=== PATIENT | male | born 1955 | race Caucasian/White ===

== ENCOUNTER 2022-05-16 15:37 | Outpatient (CLI) | payer OTHER, SELFPAY ==
[2022-05-16 21:55] LABS: Cholesterol* 166 mg/dL (90-199)
[2022-05-16 21:56] LABS: HDL Cholesterol* 42 mg/dL (>=40); LDL Cholesterol Calculated 86 mg/dL (<100); Triglycerides* 190 mg/dL (40-149)
[2022-05-16 22:24] LABS: PSA Screen* 3.54 ng/mL (0.10-4.00)
== END 2022-05-16 15:38 | disposition home or self-care (01) ==
LOC: LKVREF 15:38
PROVIDERS: PCP Family Medicine; Visit Provider Family Medicine
DX: Z00.00 Encounter for general adult medical examination without abnormal findings (principal); I70.1 Atherosclerosis of renal artery; D64.9 Anemia, unspecified; I10 Essential (primary) hypertension; I48.91 Unspecified atrial fibrillation
CPT/HCPCS: 80061; 84153

== ENCOUNTER 2025-01-06 11:00 | Outpatient (CLI) | payer MEDICARE, SELFPAY | END 2025-01-06 11:01 | disposition home or self-care (01) | PROVIDERS: PCP Family Medicine; Visit Provider Family Medicine | DX: I48.91 Unspecified atrial fibrillation (principal); I10 Essential (primary) hypertension; N40.1 Benign prostatic hyperplasia with lower urinary tract symptoms; Z12.5 Encounter for screening for malignant neoplasm of prostate | CPT/HCPCS: 80053; 80061; G0103 ==

== ENCOUNTER 2025-01-20 13:09 | Outpatient (CLI) | payer MEDICARE, SELFPAY ==
--- NOTE | 2025-01-20 13:45 | CRLHL7_ITS ---
For Patients: As a result of the Century Cures Act, medical imaging exams and procedure reports are released immediately into your electronic medical record. You may view this report before your referring provider. If you have questions, please contact your health care provider. INDICATION: Rectal/anal fistula. TECHNIQUE: Pelvic MRI focusing on the anal canal with T1, T2, and postcontrast images. Intravenous gadolinium administered. 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 No other perineal or pelvic inflammatory changes. No pelvic adenopathy or masses. No other bony or soft tissue abnormalities identified. Impression : 1. 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 Dictated by Garth Sage MD @ 01/23/2025 9:36:02 AM (Electronically Signed)
== END 2025-01-20 13:10 | disposition home or self-care (01) ==
LOC: MRI 13:11
PROVIDERS: PCP Family Medicine; Visit Provider Surgery
DX: K60.30 Anal fistula, unspecified (principal)
CPT/HCPCS: 72197; A9575